=== PATIENT | male | born 1935 | race Caucasian/White ===

== ENCOUNTER 2022-12-05 12:08 | Day surgery (SDC) | payer MEDICARE, BC ==
[2022-11-30 09:33] LABS: EOSINOPHILS # (AUTO) 0.1 X10'3 (0-0.9); EOSINOPHILS % (AUTO) 1.9 % (0-6); HEMATOCRIT 42.3 % (42.0-52.0); HEMOGLOBIN 14.3 g/dl (14.0-17.9); LYMPHOCYTES % (AUTO) 27.4 % (21-51); MEAN CORPUSCULAR HEMOGLOBIN 32.1 PG (27.0-31.0); MEAN CORPUSCULAR HGB CONC 33.8 g/dL (33.0-36.5); MEAN PLATELET VOLUME 9.5 FL (7.4-10.4); MONOCYTES # (AUTO) 0.4 X10'3 (0-0.9); MONOCYTES % (AUTO) 9.7 % (2-12); NEUTROPHILS # (AUTO) 2.2 X10'3 (1.8-7.7); PLATELET COUNT 116 X10'3 (140-440); RED BLOOD COUNT 4.45 X10'6 (4.70-6.10); RED CELL DISTRIBUTION WIDTH 12.9 % (11.5-14.5); WHITE BLOOD COUNT 3.7 X10'3 (4.5-11.0)
[2022-11-30 09:38] LABS: APTT 32 SECONDS (22-32); PROTHROMBIN TIME 10.9 SECONDS (9.0-12.0)
[2022-11-30 09:40] LABS: ALBUMIN 3.2 G/DL (3.4-5.0); ANION GAP 8 (8-16); BLOOD UREA NITROGEN 22 MG/DL (7-18); BUN/CREATININE RATIO 21.2 (10.0-20.0); CALCIUM 9.5 MG/DL (8.5-10.1); CHLORIDE 108 MMOL/L (99-107); CHOL/HDL RATIO 2.5 (0.00-4.99); CHOLESTEROL 124 MG/DL (0-200); CREATININE 1.04 MG/DL (0.60-1.10); GLUCOSE 119 MG/DL (70-104); HDL CHOLESTEROL 49 MG/DL (35-60); LDL CHOLESTEROL 58 MG/DL (50-100); SODIUM 140 MMOL/L (135-145); TRIGLYCERIDES 106 MG/DL (20-135); eGFR 68 ML/MIN
[~2022-12-05] VITALS: Ht 180.3 cm; Wt 102.0 kg
[2022-12-05] VITALS (9 sets, daily range): BP systolic 113–148; BP diastolic 53–75; PULSE 62–73; RESP 12–16; TEMP 97.9; O2SAT 95–98
[2022-12-05] MEDS ORDERED: normal saline 1,000 ML IV SCH (12:20)
[2022-12-05] MEDS ORDERED: diphenhydrAMINE 25mg capsule PO PRN (12:20)
[2022-12-05] MEDS ORDERED: LORazepam 0.5 MG tablet PO PRN (12:20)
[2022-12-05] MEDS ORDERED: FLO0.4C PO (12:34)
[2022-12-05] MEDS ORDERED: OSC500T PO (12:34)
[2022-12-05] MEDS ORDERED: OMEG100037 PO (12:34)
[2022-12-05] MEDS ORDERED: TADA5TAB13 PO (12:34)
[2022-12-05] MEDS ORDERED: PANT-47 PO (12:34)
[2022-12-05] MEDS ORDERED: CHOL20002 PO (12:34)
[2022-12-05] MEDS ORDERED: MULT-1085 PO (12:34)
[2022-12-05] MEDS ORDERED: FINA5TAB11 PO (12:34)
[2022-12-05] MEDS ORDERED: ROSU5TAB12 PO (12:34)
[2022-12-05] MEDS ORDERED: nitroGLYCERIN-Tridil 50MG/D5W 250 ML IV ONE (14:13)
[2022-12-05] MEDS ORDERED: fentaNYL/PF 50MCG/1 ML 2ML syringe ONE (14:14)
[2022-12-05] MEDS ORDERED: verapamil 2.5 mg/ml inj IV ONE (14:14)
[2022-12-05] MEDS ORDERED: LIDOcaine 1% (10mg/ml) 2ml vial ONE (14:14)
[2022-12-05] MEDS ORDERED: midazolam 1 mg/ML 2ml injection ONE (14:14)
[2022-12-05] MEDS ORDERED: iohexol 350MG/ML 100ml bottle IV ONE (14:14)
[2022-12-05] MEDS ORDERED: heparin 1,000unit/ml 10ml vial 10 ML ONE (14:14)
[2022-12-05] MEDS ORDERED: LIDOcaine 1% 30ml preserv. free vial ONE (14:51)
[2022-12-05 15:07] LABS: ISTAT HGB ART 12.6 g/dl (14.0-17.9); ISTAT Hct ART 37 %PCV (42-52); ISTAT O2 SATURATION ARTERIAL 94 % (95-98); ISTAT SOURCE ART
[2022-12-05] MEDS ORDERED: HYDROcodone/acetaminophen 5mg/325mg tablet PO PRN (15:50)
[2022-12-05] MEDS ORDERED: HYDROcodone/acetaminophen 10/325mg tab PO PRN (15:50)
[2022-12-05 16:22] LABS: ISTAT HGB MIX 12.6 g/dl (14.0-17.9); ISTAT Hct MIX 37 %PCV (42-52); ISTAT O2 SATURATION MIX VENOUS 72 % (60-80); ISTAT SOURCE VEN
== END 2022-12-05 18:20 | disposition home or self-care (01) ==
LOC: SSTAY O 12:08
PROVIDERS: ATTEND Student in an Organized Health Care Education/Training Program
DX: I35.0 Nonrheumatic aortic (valve) stenosis (principal); E78.5 Hyperlipidemia, unspecified; I10 Essential (primary) hypertension; F32.A Depression, unspecified; K21.9 Gastro-esophageal reflux disease without esophagitis; I65.29 Occlusion and stenosis of unspecified carotid artery; Z88.0 Allergy status to penicillin; Z88.2 Allergy status to sulfonamides; Z88.8 Allergy status to other drugs, medicaments and biological substances; Z79.899 Other long term (current) drug therapy
CPT/HCPCS: 36415; 80048; 80061; 82803; 85014; 85025; 85610; 85730; 93005; 93456; 99152; 99153; A6258; J1644; J2250; J3010; J3490; J7030; Q0163; Q9967; A6402; A6449; C1751; C1894

== ENCOUNTER 2023-02-13 16:32 | Emergency (ER) | payer MEDICARE, BC ==
[~2023-02-13 16:32] MED LIST: ASPI-611 PO; FINA5TAB11 PO; FLO0.4C PO; MAGN400C PO; OMEG100037 PO; PANT-47 PO; ROSU5TAB12 PO; ST.300CA PO; TADA5TAB13 PO; TEST75GE10 TOP; [UNRECOGNIZED DRUG - OTHER] PO
--- NOTE | 2023-02-13 17:02 | NUR ---
pt left without being seen. pt called and message left
== END 2023-02-13 17:03 | disposition left against medical advice (07) ==
LOC: ER 16:33
DX: Z00.8 Encounter for other general examination (principal); Z53.21 Procedure and treatment not carried out due to patient leaving prior to being seen by health care provider

== ENCOUNTER 2023-02-14 09:19 | Emergency (ER) | payer MEDICARE, BC ==
[~2023-02-14] VITALS: Ht 180.3 cm; Wt 103.6 kg
[2023-02-14 09:31] VITALS: TEMP 97.9
[2023-02-14 09:58] LABS: BASOPHILS # (AUTO) 0.1 X10'3 (0-0.2); BASOPHILS % (AUTO) 1.1 % (0-1); EOSINOPHILS # (AUTO) 0.1 X10'3 (0-0.9); EOSINOPHILS % (AUTO) 2.8 % (0-6); HEMATOCRIT 37.9 % (42.0-52.0); HEMOGLOBIN 12.9 g/dl (14.0-17.9); LYMPHOCYTES % (AUTO) 20.8 % (21-51); MEAN CORPUSCULAR HGB CONC 34.1 g/dL (33.0-36.5); MEAN CORPUSCULAR VOLUME 93.7 FL (78-98); MEAN PLATELET VOLUME 8.4 FL (7.4-10.4); MONOCYTES # (AUTO) 0.6 X10'3 (0-0.9); MONOCYTES % (AUTO) 12.1 % (2-12); NEUTROPHILS % (AUTO) 63.2 % (42-75); PLATELET COUNT 102 X10'3 (140-440); RED BLOOD COUNT 4.04 X10'6 (4.70-6.10); RED CELL DISTRIBUTION WIDTH 13.6 % (11.5-14.5); WHITE BLOOD COUNT 4.7 X10'3 (4.5-11.0)
[2023-02-14 10:15] LABS: ALANINE AMINOTRANSFERASE 14 U/L (12-78); ALBUMIN 2.7 G/DL (3.4-5.0); ALBUMIN/GLOBULIN RATIO 0.8 (1.1-1.5); ALKALINE PHOSPHATASE 71 IU/L (46-116); ANION GAP 8 (8-16); ASPARTATE AMINO TRANSFERASE 22 U/L (10-37); BLOOD UREA NITROGEN 18 MG/DL (7-18); BUN/CREATININE RATIO 17.6 (10.0-20.0); CALCIUM 9.4 MG/DL (8.5-10.1); CHLORIDE 108 MMOL/L (99-107); CREATININE 1.02 MG/DL (0.60-1.10); GLUCOSE 111 MG/DL (70-104); SODIUM 139 MMOL/L (135-145); TOTAL CARBON DIOXIDE 23.5 MMOL/L (24-32); TOTAL PROTEIN 6.3 G/DL (6.4-8.2); eCRCL 55 ML/MIN; eGFR 69 ML/MIN
[2023-02-14 10:25] LABS: PRO BRAIN NATRIURETIC PEPTIDE 227 PG/ML (0-450)
[2023-02-14] MEDS ORDERED: furosemide 20MG tablet PO ONE (14:20)
[2023-02-14 14:30] VITALS: BP 146/65; PULSE 76; O2SAT 96
[2023-02-14 14:31] VITALS: RESP 20
== END 2023-02-14 14:41 | disposition home or self-care (01) ==
LOC: ER 09:19
DX: R60.0 Localized edema (principal); M79.604 Pain in right leg; M79.605 Pain in left leg
CPT/HCPCS: 36415; 71045; 80053; 83880; 84484; 85025; 93005; 99285; J7030